=== PATIENT | male | born 1985 | race Two or more races ===

== ENCOUNTER 2017-04-14 16:06 | Emergency (ER) | payer OTHER ==
--- NOTE | 2017-04-14 17:23 | ER Document Report ---
ED Extremity Problem, Upper - General Chief Complaint: Shoulder Injury Stated Complaint: RIGHT SHOULDER PAIN Time Seen by Provider: 04/14/17 16:45 Mode of Arrival: Ambulatory Information source: Patient Notes: Patient is a 31-year-old white male comes emergency room complaining of right shoulder pain. Patient states he was ice skating with his family today and he did a turn lost control beat went over his head and he landed on his right shoulder. States he heard a crack or a pop in the shoulder as he hit. He is having a hard time raising the arm to from his side to perpendicular. Is also having trouble lifting anything. Patient denies any other injuries at this time. He also denies any other medical problems. He is currently active . TRAVEL OUTSIDE OF THE [place] IN LAST 30 DAYS: No - HPI Patient complains to provider of: Injury Onset: Just prior to arrival Recent injury: Yes Where: Public place Quality of pain: Sharp, Stabbing, Throbbing Severity of pain: Moderate, Still present Pain Level: 2 Context: Blow Arm and Shoulder (Right): 1 - Tender to palpate on top Associated symptoms: None Exacerbated by: Movement Relieved by: Nothing - Related Data Allergies/Adverse Reactions: No Known Allergies Allergy (Verified 04/14/17 16:07) Past Medical History - Social History Smoking Status: Unknown if Ever Smoked Cigarette use (# per day): No Chew tobacco use (# tins/day): No Smoking Education Provided: No Frequency of alcohol use: Social Drug Abuse: None Lives with: Family Family History: Reviewed & Not Pertinent Patient has suicidal ideation: No Patient has homicidal ideation: No - Past Medical History Cardiac Medical History: Reports: Hx Hypertension - no medication Renal/ Medical History: Denies: Hx Peritoneal Dialysis Review of Systems - Review of Systems Constitutional: No symptoms reported EENT: No symptoms reported Cardiovascular: No symptoms reported Respiratory: No symptoms reported Gastrointestinal: No symptoms reported Genitourinary: No symptoms reported Male Genitourinary: No symptoms reported Musculoskeletal: Joint pain, Joint swelling, Muscle pain Skin: No symptoms reported Hematologic/Lymphatic: No symptoms reported Neurological/Psychological: No symptoms reported -: Yes All other systems reviewed and negative Physical Exam - Vital signs Vitals: Temp Pulse Resp BP Pulse Ox 98.5 F 61 18 143/97 H 99 04/14/17 16:11 04/14/17 16:11 04/14/17 16:11 04/14/17 16:11 04/14/17 16:11 Interpretation: Hypertensive - General General appearance: Alert - Uncomfortable. - HEENT Head: Normocephalic, Atraumatic - Respiratory Respiratory status: No respiratory distress Chest status: Nontender Breath sounds: Normal. No: Decreased air movement, Nonproductive cough, Productive cough, Rales, Rhonchi, Stridor, Wheezing, Other - Cardiovascular Rhythm: Regular Heart sounds: Normal auscultation Murmur: No - Extremities General upper extremity: Tender General lower extremity: Normal inspection, Normal ROM Shoulder: Tender, Limited ROM, Other - Examination patient's right shoulder shows no ecchymosis or abrasions at this time. Palpation of the shoulder shows there is point tenderness around the acromioclavicular space and some mild tenderness on the distal portion of the clavicle. Likewise there is point tenderness posteriorly on or near the upper scapular border. Lifting patient passively to perpendicular causes a catching the shoulder right now. After we passed the cat she has full range of motion without any discomfort. Patient's vascular exam shows to be normal on the right side with Refill normal in the fingers of the right hand. And no deformity of the right shoulder has been noted at all.. No: Normal, Nontender, Abrasion, Deformity, Dislocation, Ecchymosis, Instability, Laceration Arm: Normal Elbow: Normal, Nontender Forearm: Normal, Nontender Wrist: Normal, Nontender. No: Tender, Axial load of thumb pain, Abrasion, Deformity, Dislocation, Ecchymosis, Instability, Laceration, Limited ROM, Navicular tenderness, Other Hand: Normal, Nontender. No: Tender, Abrasion, Deformity, Dislocation, Ecchymosis, Instability, Nail injury, Laceration, No evidence of human bite, No evidence of FB, Swelling, Tendon deficit, Other Course - Vital Signs Vital signs: Temp Pulse Resp BP Pulse Ox 98.5 F 61 18 143/97 H 99 04/14/17 16:11 04/14/17 16:11 04/14/17 16:11 04/14/17 16:11 04/14/17 16:11 - Diagnostic Test Radiology reviewed: Reports reviewed - X-ray of the shoulder was negative for any acute findings. X-ray of the scapula was negative for any acute findings. X-ray of the clavicle was negative for acute findings. - Transfer of Care Notes: 04/14/17 17:55 I have informed patient that x-rays were all negative however I told him that I cannot be certain of any ligament or tendon damage that was done by the fall. He could have experienced some sort of a tendon tear that I cannot put my finger on right now. I have informed him that I can put him in a sling and ibuprofen and he can ice down the area. Patient refuses the sling and will except the ibuprofen and he is understanding that if it continues to bother him [place] [facility] and [facility] get an [place]. Discharge - Discharge Clinical Impression: Right shoulder strain Qualifiers: Encounter type: initial encounter Qualified Code(s): S46.911A - Strain of unspecified muscle, fascia and tendon at shoulder and upper arm level, right arm , initial encounter Contusion of shoulder, right Qualifiers: Encounter type: initial encounter Qualified Code(s): S40.011A - Contusion of right shoulder, initial encounter Condition: Good Disposition: HOME, SELF-CARE Instructions: Contusion ([facility]), Shoulder Injury ([facility]), Exercise Program for the Shoulder ([facility]) Additional Instructions: As we discussed all your x-rays were negative. This however does not mean there is not an internal injury. By the mechanism of action you could have a ruptured tendon torn tendon and ligament damage or could just be bruised. If pain continues on after about 3-4 days highly suggest you [facility]-[place] [facility] and possibly have an MRI to make sure there is nothing else. I am giving a prescription for ibuprofen for the inflammation since she did not want the sling at least ice down the area 3 times a day the next couple of days. Should you have any concerns or problems return to ER for recheck. Prescriptions: Ibuprofen 800 mg PO TID #30 tablet Forms: Elevated Blood Pressure
--- NOTE | 2017-04-14 17:34 | RADIOLOGY REPORT (SQ) ---
EXAM DESCRIPTION: CLAVICLE RIGHT COMPLETED DATE/TIME: 04/14/2017 5:25 pm REASON FOR STUDY: fall COMPARISON: Right shoulder, right scapula films same date. NUMBER OF VIEWS: Two views. TECHNIQUE: Frontal and angled images were acquired of the right clavicle. LIMITATIONS: None. FINDINGS: MINERALIZATION: Normal. BONES: No acute fracture or dislocation. No worrisome bone lesions. SOFT TISSUES: No obvious swelling or foreign body. OTHER: No other significant finding. IMPRESSION: NEGATIVE STUDY OF THE RIGHT CLAVICLE. NO RADIOGRAPHIC EVIDENCE OF ACUTE INJURY. TECHNICAL DOCUMENTATION: JOB ID: [id number] [employer]- All Rights Reserved
--- NOTE | 2017-04-14 17:35 | RADIOLOGY REPORT (SQ) ---
EXAM DESCRIPTION: SCAPULA RIGHT COMPLETED DATE/TIME: 04/14/2017 5:25 pm REASON FOR STUDY: fall COMPARISON: Right clavicle, right shoulder films same date TECHNIQUE: Two views, AP and tangential Y-view LIMITATIONS: None. FINDINGS: No scapular fracture. Normal bone density. Normal alignment at the glenohumeral and acromioclavicular joints. IMPRESSION: No acute changes TECHNICAL DOCUMENTATION: JOB ID: [id number] [employer]- All Rights Reserved
--- NOTE | 2017-04-14 17:36 | RADIOLOGY REPORT (SQ) ---
EXAM DESCRIPTION: SHOULDER RIGHT 2 OR MORE VIEWS COMPLETED DATE/TIME: 04/14/2017 5:25 pm REASON FOR STUDY: fall, hit shoulder, can't move COMPARISON: None. NUMBER OF VIEWS: Three views. TECHNIQUE: Internal rotation, external rotation, and transaxial images acquired of the right shoulde r. LIMITATIONS: None. FINDINGS: MINERALIZATION: Normal. BONES: No acute fracture or dislocation. No worrisome bone lesions. JOINTS: No glenohumeral dislocation. No acromioclavicular joint widening VISUALIZED LUNGS AND RIBS: No pneumothorax. No rib fracture. SOFT TISSUES: No radiopaque foreign body. OTHER: No other significant finding. IMPRESSION: NEGATIVE STUDY OF THE RIGHT SHOULDER. NO RADIOGRAPHIC EVIDENCE OF ACUTE INJURY. TECHNICAL DOCUMENTATION: JOB ID: [id number] [employer]- All Rights Reserved
[2017-04-14 18:34] VITALS: BP 136/82
== END 2017-04-14 18:34 | disposition home or self-care (01) ==
LOC: ER 16:06
DX: S46.911A Strain of unspecified muscle, fascia and tendon at shoulder and upper arm level, right arm, initial encounter (principal); M25.511 Pain in right shoulder; V00.211A Fall from ice-skates, initial encounter; Y93.21 Activity, ice skating; I10 Essential (primary) hypertension
CPT/HCPCS: 99283

== ENCOUNTER 2017-08-20 11:17 | Emergency (ER) | payer OTHER ==
[2017-08-20] MEDS ORDERED: DICYCLOMINE HCL 20 MG TABLET PO ONE (11:59)
[2017-08-20] MEDS ORDERED: PROMETHAZINE HCL 25 MG TABLET PO ONE (11:59)
--- NOTE | 2017-08-20 12:02 | ER Document Report ---
ED Medical Screen (RME) - General Chief Complaint: Abdominal Pain Stated Complaint: ABDOMINAL PAIN Time Seen by Provider: 08/20/17 11:59 Notes: Patient says he has been having pain from his epigastrium to the right mid and posterior abdomen and flank which started . It continued as well as that he developed diarrhea Monday in which she also has had today. No blood present in the diarrhea. When he woke up this morning, he was feeling better and his pain was decreased so he ate some breakfast and then his pain returned. Nauseated but not vomiting. Not aware of any fever. Patient had a very similar pain about 5 years ago and was evaluated for gallbladder disease including what sounds like a HIDA scan. He did not have his gallbladder removed. He was told his gallbladder did not function properly but he has not had any problems since then. No other surgeries. On no regular medications. Has been told in the past he has high blood pressure but does not take any medications for same. TRAVEL OUTSIDE OF THE [place] IN LAST 30 DAYS: No - Related Data Allergies/Adverse Reactions: No Known Allergies Allergy (Verified 08/20/17 11:18) Past Medical History - Social History Cigarette use (# per day): No Frequency of alcohol use: None Drug Abuse: None Family history: Reviewed & Not Pertinent - Past Medical History Cardiac Medical History: Reports: Hx Hypertension - no medication Review of Systems - Review of Systems Notes: REVIEW OF SYSTEMS: CONSTITUTIONAL : Denies fever. EENT: Denies eye, ear, nose or mouth or throat pain or other symptoms. CARDIOVASCULAR: Denies chest pain. RESPIRATORY: Denies cough, chest congestion, or shortness of breath. GASTROINTESTINAL: see HPI. Denies nausea, vomiting, or diarrhea. GENITOURINARY: Denies difficulty or painful urinating, urinary frequency, blood in urine. MUSCULOSKELETAL: Denies back or neck pain. Denies joint pain or swelling. SKIN: Denies rash or skin lesions. NEUROLOGICAL: Denies LOC or altered mental status. Denies headache. Denies sensory loss or motor deficits. ALL OTHER SYSTEMS REVIEWED AND NEGATIVE. Physical Exam - Vital signs Vitals: Temp Pulse Resp BP Pulse Ox 97.9 F 51 L 14 133/82 H 98 08/20/17 11:24 08/20/17 11:24 08/20/17 11:24 08/20/17 11:24 08/20/17 11:24 Interpretation: Normal - Notes Notes: PHYSICAL EXAMINATION: GENERAL: Well-appearing, in no acute distress. HEAD: Atraumatic, normocephalic. EYES: Pupils equal round and reactive to light, extraocular movements intact. ENT: oropharynx clear without exudates. Moist mucous membranes. NECK: Normal range of motion, supple. LUNGS: Breath sounds clear and equal bilaterally. HEART: Regular rate and rhythm without murmurs. ABDOMEN: Soft, mild tenderness in the right upper quadrant, but definitely no guarding or rebound. No masses. BACK: No tenderness throughout entire back. EXTREMITIES: Normal range of motion without pain. NEUROLOGICAL: Normal speech, normal gait. Normal sensory, motor, and reflex exams. Awake, alert, and oriented x3. Cranial nerves normal. PSYCH: Normal mood, normal affect. SKIN: Warm, dry, no rashes. Course - Re-evaluation Re-evalutation: 08/20/17 21:05 Patient said he did not get any significant relief from the medications I gave him, just tired and sleepy feeling. His entire workup is essentially normal. 1 of the liver markers is very minimally elevated and I do not think that is clinically significant. Patient is being prescribed Bentyl and Phenergan to try as needed. I recommend he try to get established with a local practitioner, even back at the doctors who saw him in [place] some years ago as he needs more workup on this if he continues to have the symptoms. - Vital Signs Vital signs: Temp Pulse Resp BP Pulse Ox 97.8 F 43 L 14 124/90 H 99 08/20/17 13:40 08/20/17 13:40 08/20/17 11:24 08/20/17 13:40 08/20/17 13:40 - Laboratory Result Diagrams: 08/20/17 12:12 08/20/17 12:12 Laboratory results interpreted by me: 08/20/17 08/20/17 12:12 12:12 RBC 5.60 H Hgb 17.2 H Monocytes % 14.3 H Sodium 145.5 H ALT 97 H Doctor's Discharge - Discharge Clinical Impression: Abdominal pain Condition: Stable Disposition: HOME, SELF-CARE Additional Instructions: ABDOMINAL PAIN: There are many causes of abdominal pain. Pain can mean a serious problem requiring surgery (such as appendicitis). It can also be an innocent problem that goes away on its own (such as a viral infection). Often, time must pass to determine the cause of pain. The physician does not feel that hospitalization is necessary, at present. Things may change within the next 24 hours. Call the doctor or come back for re- examination if any problems occur, such as: (1) Pain that becomes more severe, steady, or becomes concentrated in one specific area. Also, pain that is more severe with movement or coughing. (2) Vomiting that persists or becomes more frequent. (3) Blood in the vomitus, urine, or bowel movements. Blood in the stool may have a tarry or black appearance. (4) Shaking chills or fever greater than 100 degrees F. (5) The abdomen becomes more distended or swollen. (6) Bowel movements cease. (7) Failure to improve as expected. NORMAL EXAM AND WORKUP: At this time, your examination and workup show no significant abnormality. No significant abnormal physical findings are noted. All laboratory, EKG, and imaging (x-ray, CT scans, ultrasound) studies that were ordered show no significant abnormality. Although your examination and all studies that were ordered showed no significant abnormal finding, there are no examinations and no studies that are 100% accurate. There is always the possibility that some abnormality could exist and not be detected with physical examination or within the limits and capabilities of laboratory and other studies. You should return or follow up as you were instructed on your visit today for further evaluation if your symptoms do not resolve. ANTINAUSEA MEDICATION: You have been given a medication to suppress nausea and vomiting. This type of medication can be given as a shot, pill, or suppository. It will usually last for many hours. Pills and shots usually last six to eight hours, suppositories last about 12 hours. For the typical illness, only one or two doses of the medication may be necessary. Mild lightheadedness may occur. This type of medicine can cause drowsiness. Do not drive or operate dangerous machinery while under its influence. Do not mix with alcohol. See your doctor at once if you have muscle spasms or tightness, or uncontrollable motions (particularly of the neck, mouth, or jaw). Persistent vomiting or severe lightheadedness should also be evaluated by the physician. ANTISPASMODICS: You have been given a prescription for an antispasmodic medicine. This type of drug is used to decrease cramping and pain in the intestines. It is also used to decrease secretion of internal fluids (such as stomach acid in ulcer disease or pancreatic juice in pancreas disease). This medicine may cause drowsiness, especially with the first dose. Do not operate machinery or drive until all side effects have resolved. Do not combine with alcohol. Other common side effects include dry mouth and eyes. In older persons, antispasmodics can occasionally cause urinary retention, constipation, or trouble focusing the eyes. Glaucoma may be worsened by this medicine. FOLLOW-UP CARE: If you have been referred to a physician for follow-up care, call the physician s office for an appointment as you were instructed or within the next two days. If you experience worsening or a significant change in your symptoms, notify the physician immediately or return to the Emergency Department at any time for re-evaluation. Follow-up with a local primary care provider, or consider returning to further workup for you at the medical clinic in [facility]. Prescriptions: Dicyclomine HCl [Bentyl 20 mg Tablet] 40 mg PO QID #50 tablet Promethazine HCl [Phenergan 25 mg Tablet] 1 - 2 tab PO Q6H PRN #15 tablet PRN Reason:
[2017-08-20 12:43] LABS: ABSOLUTE EOSINOPHILS # (AUTO) 0.3 10^3/uL (0.0-0.6); ABSOLUTE MONOCYTES (AUTO) 1.1 10^3/uL (0.1-1.4); ABSOLUTE NEUT (AUTO) 4.5 10^3/uL (1.7-8.2); BASOPHILS % (AUTO) 0.3 % (0-2); EOSINOPHILS % (AUTO) 3.6 % (0-6); HEMATOCRIT 49.3 % (37.9-51.0); HEMOGLOBIN 17.2 g/dL (13.5-17.0); LYMPHOCYTES % (AUTO) 25.3 % (13-45); MEAN CORPUSCULAR HEMOGLOBIN 30.8 pg (27.0-33.4); MEAN CORPUSCULAR HGB CONC 34.9 g/dL (32.0-36.0); MEAN CORPUSCULAR VOLUME 88 fl (80-97); MONOCYTES % (AUTO) 14.3 % (3-13); PLATELET COUNT 215 10^3/uL (150-450); RED CELL DISTRIBUTION WIDTH 13.4 % (11.5-14.0); SEGMENTED NEUTROPHILS % (AUTO) 56.5 % (42-78); TOTAL CELLS COUNTED % (AUTO) 100 %; WHITE BLOOD COUNT 7.9 10^3/uL (4.0-10.5)
[2017-08-20 12:58] LABS: APPEARANCE,URINE CLEAR; BILIRUBIN,URINE NEGATIVE (NEGATIVE); COLOR,URINE STRAW; GLUCOSE, URINE NEGATIVE (NEGATIVE); KETONES,URINE NEGATIVE (NEGATIVE); LEUKOCYTE ESTERASE,URINE NEGATIVE (NEGATIVE); NITRITE,URINE NEGATIVE (NEGATIVE); PROTEIN,URINE NEGATIVE (NEGATIVE); URINE SPECIFIC GRAVITY 1.004; UROBILINOGEN,URINE NEGATIVE mg/dL (<2.0)
[2017-08-20 13:04] LABS: ALANINE AMINOTRANSFERASE 97 U/L (21-72); ALKALINE PHOSPHATASE 73 U/L (38-126); ANION GAP 15 (5-19); ASPARTATE AMINO TRANSFERASE 54 U/L (17-59); BILIRUBIN,DIRECT 0.3 mg/dL (0.0-0.4); BILIRUBIN,TOTAL 0.6 mg/dL (0.2-1.3); BLOOD UREA NITROGEN 12 mg/dL (7-20); CALCIUM 10.2 mg/dL (8.4-10.2); CARBON DIOXIDE 27 mmol/L (22-30); CHLORIDE 104 mmol/L (98-107); GLUCOSE 95 mg/dL (75-110); LIPASE 36.1 U/L (23-300); POTASSIUM 4.6 mmol/L (3.6-5.0); SODIUM 145.5 mmol/L (137-145); TOTAL PROTEIN 8.1 g/dL (6.3-8.2)
[2017-08-20 13:53] VITALS: BP 124/90
== END 2017-08-20 13:53 | disposition home or self-care (01) ==
LOC: ER 11:17
DX: R10.13 Epigastric pain (principal); R10.9 Unspecified abdominal pain; R19.7 Diarrhea, unspecified; R11.0 Nausea; I10 Essential (primary) hypertension
CPT/HCPCS: 99284; 36415; 83690; 85025; 80053; 81001; J3490

== ENCOUNTER → 2017-08-23 | Outpatient (CLI) | payer OTHER ==
--- NOTE | 2017-08-23 10:50 | RADIOLOGY REPORT (SQ) ---
EXAM DESCRIPTION: U/S ABDOMEN LIMITED W/O DOP COMPLETED DATE/TIME: 08/23/2017 10:28 am REASON FOR STUDY: RUQ ABD PAIN (R10.11) R10.11 RIGHT UPPER QUADRANT PAIN COMPARISON: None. TECHNIQUE: Dynamic and static grayscale images acquired of the abdomen and recorded on PACS. Additio nal selected color Doppler and spectral images recorded. LIMITATIONS: Midline bowel gas FINDINGS: PANCREAS: Not visualized LIVER: Left lobe liver partly obscured by bowel gas. Right lobe liver unremarkable LIVER VASCULATURE: Normal directional flow of the main portal vein and hepatic veins. GALLBLADDER: No stones. Normal wall thickness. No pericholecystic fluid. ULTRASOUND-DETECTED AMARO'S SIGN: Negative. INTRAHEPATIC DUCTS AND COMMON DUCT: CBD and intrahepatic ducts normal caliber. No filling defects. INFERIOR VENA CAVA: Normal flow. AORTA: Upper abdominal aorta not well seen. No mid or distal abdominal aortic aneurysm RIGHT KIDNEY: Normal size. Normal echogenicity. No solid or suspicious masses. No hydronephrosis. No calcifications. PERITONEAL AND RIGHT PLEURAL SPACE: No ascites or effusions. OTHER: No other significant findings. IMPRESSION: No gallstones. TECHNICAL DOCUMENTATION: JOB ID: [id number] [employer]- All Rights Reserved Reading location - IP/workstation name: [email or web address]
== END ==
LOC: RAD 09:35
PROVIDERS: ATTEND Nurse Practitioner Family
DX: R10.11 Right upper quadrant pain (principal)
CPT/HCPCS: 76705

== ENCOUNTER → 2017-09-01 | Outpatient (CLI) | payer OTHER ==
--- NOTE | 2017-09-01 10:15 | RADIOLOGY REPORT (SQ) ---
EXAM DESCRIPTION: NM HIDA SCAN WITH CCK COMPLETED DATE/TIME: 09/01/2017 10:05 am REASON FOR STUDY: RUQ ABD PAIN (R10.11) R10.11 RIGHT UPPER QUADRANT PAIN COMPARISON: None. RADIONUCLIDE AND DOSE: DOSAGE RADIONUCLIDE: 5.46 millicuries Tc99m Mebrofenin. DOSAGE CCK: 2.1 micrograms. DOSAGE MORPHINE: Not required. The route of agent administration: Intravenous TECHNIQUE: Serial imaging right upper quadrant up to 60 minutes following injection of radionuclide. CCK injected after gallbladder visualized. LIMITATIONS: None. FINDINGS: LIVER: Normal visualization without areas of photopenia. INTRAHEPATIC BILE DUCTS: Normal size and no delay in visualization. COMMON BILE DUCT: Normal without dilatation. GALLBLADDER: Normal visualization. Calculated ejection fraction of 92%. Normal range is greater th an 35%. PHYSICAL RESPONSE: Patients presenting complaint was not reproduced. OTHER: No other significant finding. IMPRESSION: NORMAL STUDY WITHOUT CYSTIC OR COMMON DUCT OBSTRUCTION. NORMAL GALLBLADDER EJECTION FRA CTION. NO EVIDENCE FOR BILIARY DYSKINESIS. TECHNICAL DOCUMENTATION: JOB ID: [id number] [employer] All Rights Reserved Reading location - IP/workstation name: Unknown
== END ==
LOC: RAD 07:22
PROVIDERS: ATTEND Nurse Practitioner Family
DX: R10.11 Right upper quadrant pain (principal)
CPT/HCPCS: 78227; J2805; A9537; Q9969